=== PATIENT | male | born 1960 | race African-American/Black ===

== ENCOUNTER 2019-10-25 15:11 | Inpatient (IN) | payer MEDICARE, OTHER ==
[~2019-10-25] VITALS: Ht 177.8 cm; Wt 81.2 kg
[~2019-10-25 15:11] MED LIST: ATEN-42 PO; CALC-938 PO; CLON0.3T PO; HYDR-4134; HYDR-4134 PO; HYDR-4135 PO; HYDR-523 PO; LORA10TA7 PO; LOSA100T3 PO; OLME20TA13 PO; OXCA300T31 PO; PROT40 PO; TRIA10.82 NS
[2019-10-25] MEDS ORDERED: MORPHINE SULFATE 4 MG/ML CPJ (NOT FOR IM USE) IV ONE ×2 (17:00→20:00)
[2019-10-25] MEDS ORDERED: SODIUM CHLORIDE 0.9% 1000ML BAG (SEPSIS BOLUS) IV ONE (17:00)
[2019-10-25] MEDS ORDERED: VANCOMYCIN 1 G PREMIX 200 ML IV ONE (17:00)
[2019-10-25] MEDS ORDERED: PIPERACILLIN/TAZ 3.375G PREMIX 50 ML IV ONE (17:00)
[2019-10-25 17:27] LABS: HEMATOCRIT. 26.1 % (42.0-52.0); HEMOGLOBIN. 8.5 g/dL (14.0-18.0); MEAN CORPUSCULAR HEMOGLOBIN 29.9 pg (28.0-32.0); MEAN CORPUSCULAR VOLUME 91.9 fL (80.0-94.0); MEAN PLATELET VOLUME 8.7 fl (7.4-10.4); PLATELET 416 x1000/uL (130-400); RED BLOOD CELL COUNT 2.84 mill/uL (4.7-6.1); RED CELL DISTRIBUTION WIDTH 19.1 % (11.6-14.6)
[2019-10-25 17:34] LABS: CHLORIDE 96 mEq/L (98-107); INR 1.1
[2019-10-25 17:43] LABS: PLATELET ESTIMATE INCREASED
[2019-10-25] MEDS ORDERED: IOHEXOL-300 100 ML BOTTLE ONE (21:30)
[2019-10-25] MEDS ORDERED: FENTANYL CITRATE/PF 50MCG/ML 2ML VIAL IV ONE ×2 (21:45→23:45)
[2019-10-25] MEDS ORDERED: CLINDAMYCIN 600 MG in DEXTROSE 5% WATER 50 ML IV ONE (22:15)
[2019-10-25] MEDS: CLINDAMYCIN 600MG PREMIX 50 ML IV NR ×2 (22:46→23:05)
[2019-10-26] MEDS ORDERED: HYDROMORPHONE HCL/PF 2MG/ML CPJ IV ONE (02:00)
[2019-10-26] MEDS: HYDROCODONE/ACETAMINOPHEN 5/325MG TABLET PO PRN (06:32)
[2019-10-26] MEDS ORDERED: ONDANSETRON HCL 4MG/2ML INJ IV PRN (09:00)
[2019-10-26] MEDS ORDERED: DEXTROSE 50% WATER 50ML SYRINGE IV PRN (09:00)
[2019-10-26 10:15] LABS: BASOPHILS % 0.5 % (0.0-2.0); EOSINOPHILS % 0.6 % (0.0-5.0); HEMATOCRIT. 25.2 % (42.0-52.0); HEMOGLOBIN. 8.2 g/dL (14.0-18.0); MEAN CORPUSCULAR HEMOGLOBIN 29.6 pg (28.0-32.0); MEAN CORPUSCULAR VOLUME 91.6 fL (80.0-94.0); MEAN PLATELET VOLUME 8.5 fl (7.4-10.4); MONOCYTES % 13.7 % (2.0-8.0); NEUTROPHILS % 77.2 % (40.0-76.0); PLATELET 400 x1000/uL (130-400); RED BLOOD CELL COUNT 2.76 mill/uL (4.7-6.1); RED CELL DISTRIBUTION WIDTH 19.3 % (11.6-14.6)
[2019-10-26] MEDS ORDERED: SODIUM POLYSTYRENE SULFONATE 15 G/60 ML BOT PO NR (10:30)
[2019-10-26] MEDS ORDERED: PIPERACILLIN/TAZOBACTAM 2.25 G in DEXTROSE 5% WATER 50 ML IV SCH (11:00)
[2019-10-26] MEDS: BLOOD SUGAR DIAGNOSTIC STRIP TEST SCH ×3 (11:30→21:33)
[2019-10-26] MEDS ORDERED: PIPERACILLIN/TAZOBACTAM 3.375 G in DEXTROSE 5% WATER 50 ML IV SCH (12:00)
[2019-10-26] MEDS: INSULIN LISPRO 100 UNITS/ML SUBCUT SCH ×3 (12:00→21:00)
[2019-10-26 14:45] VITALS: BP 137/75
[2019-10-26] MEDS: HYDROCODONE/ACETAMINOPHEN 10/325MG TABLET PO PRN ×3 (15:02→23:03)
[2019-10-26 15:48] VITALS: BP 137/75
[2019-10-26 16:00] VITALS: BP 148/70
[2019-10-26] MEDS ORDERED: VANCOMYCIN 750 MG PREMIX 150 ML IV NR (17:00)
[2019-10-26 20:09] VITALS: BP 141/95
[2019-10-26] MEDS: EPOETIN ALFA 10000UNITS/ML VIAL SUBCUT SCH (21:32)
[2019-10-26] MEDS: PIPERACILLIN/TAZOBACTAM 2.25 G in DEXTROSE 5% WATER 50 ML IV SCH (21:32)
[2019-10-26] MEDS: LORAZEPAM 1MG TABLET PO PRN (21:32)
[2019-10-26 23:43] VITALS: BP 188/95
[2019-10-26] MEDS: CLONIDINE 0.1MG TABLET PO PRN (23:50)
[2019-10-27] MEDS: HYDRALAZINE 20MG/ML VIAL IV PRN ×2 (00:04→06:30)
[2019-10-27 01:14] VITALS: BP 154/82
[2019-10-27 04:00] VITALS: BP 181/88
[2019-10-27] MEDS: PIPERACILLIN/TAZOBACTAM 2.25 G in DEXTROSE 5% WATER 50 ML IV SCH ×3 (04:35→20:43)
[2019-10-27] MEDS: HYDROCODONE/ACETAMINOPHEN 10/325MG TABLET PO PRN ×3 (04:36→19:19)
[2019-10-27 06:12] LABS: CHLORIDE 98 mEq/L (98-107)
[2019-10-27 06:24] LABS: HEMATOCRIT. 25.2 % (42.0-52.0); HEMOGLOBIN. 8.2 g/dL (14.0-18.0); MEAN CORPUSCULAR HEMOGLOBIN 29.9 pg (28.0-32.0); MEAN CORPUSCULAR VOLUME 91.6 fL (80.0-94.0); PLATELET 430 x1000/uL (130-400); RED BLOOD CELL COUNT 2.75 mill/uL (4.7-6.1); RED CELL DISTRIBUTION WIDTH 19.5 % (11.6-14.6)
[2019-10-27] MEDS: BLOOD SUGAR DIAGNOSTIC STRIP TEST SCH (06:30)
[2019-10-27] MEDS: INSULIN LISPRO 100 UNITS/ML SUBCUT SCH (06:59)
[2019-10-27 08:00] VITALS: BP 144/73
[2019-10-27 12:00] VITALS: BP 167/82
[2019-10-27] MEDS: CLONIDINE 0.1MG TABLET PO PRN (13:10)
[2019-10-27 13:25] LABS: PLATELET ESTIMATE INCREASED
[2019-10-27 16:00] VITALS: BP 129/67
[2019-10-27] MEDS: LORAZEPAM 1MG TABLET PO PRN (20:43)
[2019-10-27 20:48] VITALS: BP 147/61
[2019-10-28 00:43] VITALS: BP 163/69
[2019-10-28] MEDS: CLONIDINE 0.1MG TABLET PO PRN (01:22)
[2019-10-28] MEDS: HYDROCODONE/ACETAMINOPHEN 10/325MG TABLET PO PRN ×4 (01:22→20:34)
[2019-10-28] MEDS: ACETAMINOPHEN 325MG TABLET PO PRN ×2 (01:23→20:34)
[2019-10-28 04:00] VITALS: BP 143/44
[2019-10-28] MEDS: PIPERACILLIN/TAZOBACTAM 2.25 G in DEXTROSE 5% WATER 50 ML IV SCH ×3 (04:00→20:34)
[2019-10-28 07:08] LABS: HEMATOCRIT. 24.1 % (42.0-52.0); HEMOGLOBIN. 7.9 g/dL (14.0-18.0); MEAN CORPUSCULAR HEMOGLOBIN 29.9 pg (28.0-32.0); MEAN CORPUSCULAR VOLUME 91.3 fL (80.0-94.0); MEAN PLATELET VOLUME 8.9 fl (7.4-10.4); PLATELET 431 x1000/uL (130-400); RED BLOOD CELL COUNT 2.64 mill/uL (4.7-6.1); RED CELL DISTRIBUTION WIDTH 19.2 % (11.6-14.6)
[2019-10-28 07:19] LABS: CHLORIDE 99 mEq/L (98-107)
[2019-10-28 08:03] VITALS: BP 149/69
[2019-10-28] MEDS ORDERED: LIDOCAINE HCL 1% 20ML VIAL (Pyxis) INJ ONE ×2 (10:27→13:42)
[2019-10-28] MEDS ORDERED: VANCOMYCIN 500 MG PREMIX 100 ML IV SCH (12:00)
[2019-10-28 12:28] VITALS: BP_SYST 149; BP_SYST 159; BP_DIAS 48; BP_DIAS 69
[2019-10-28] MEDS ORDERED: SODIUM BICARBONATE 4% (2.4MEQ) 5ML VIAL IV ONE (13:42)
[2019-10-28 13:54] LABS: PLATELET ESTIMATE INCREASED
[2019-10-28] MEDS ORDERED: IOHEXOL-350 100 ML BOTTLE ONE (14:48)
[2019-10-28] MEDS: ENOXAPARIN 80MG/0.8ML SYR SUBCUT SCH (16:18)
[2019-10-28] MEDS: CARVEDILOL 6.25 MG TABLET PO SCH ×2 (16:18→20:34)
[2019-10-28 16:33] VITALS: BP 159/65
[2019-10-28 20:29] VITALS: BP 145/52
[2019-10-28] MEDS: EPOETIN ALFA 10000UNITS/ML VIAL SUBCUT SCH (21:39)
[2019-10-29 00:42] VITALS: BP 132/63
[2019-10-29 04:00] VITALS: BP 153/70
[2019-10-29] MEDS: PIPERACILLIN/TAZOBACTAM 2.25 G in DEXTROSE 5% WATER 50 ML IV SCH ×3 (04:26→20:56)
[2019-10-29] MEDS: MORPHINE SULFATE 4 MG/ML CPJ (NOT FOR IM USE) IV PRN ×2 (06:37→12:41)
[2019-10-29 08:23] VITALS: BP 166/76
[2019-10-29 08:39] LABS: BASOPHILS % 0.4 % (0.0-2.0); EOSINOPHILS % 2.3 % (0.0-5.0); HEMATOCRIT. 24.4 % (42.0-52.0); HEMOGLOBIN. 7.8 g/dL (14.0-18.0); LYMPHOCYTES % 7.6 % (20.0-50.0); MEAN CORPUSCULAR HEMOGLOBIN 29.3 pg (28.0-32.0); MEAN CORPUSCULAR VOLUME 91.8 fL (80.0-94.0); MEAN PLATELET VOLUME 8.5 fl (7.4-10.4); MONOCYTES % 12.6 % (2.0-8.0); NEUTROPHILS % 77.1 % (40.0-76.0); PLATELET 475 x1000/uL (130-400); RED BLOOD CELL COUNT 2.66 mill/uL (4.7-6.1); RED CELL DISTRIBUTION WIDTH 19.4 % (11.6-14.6)
[2019-10-29 08:40] LABS: CHLORIDE 97 mEq/L (98-107)
[2019-10-29] MEDS: CARVEDILOL 6.25 MG TABLET PO SCH ×2 (08:49→20:57)
[2019-10-29] MEDS: ENOXAPARIN 80MG/0.8ML SYR SUBCUT SCH (10:40)
[2019-10-29 11:52] VITALS: BP 166/76
[2019-10-29] MEDS: ASPIRIN 81MG EC TABLET PO SCH (12:31)
[2019-10-29 16:02] VITALS: BP 177/78
[2019-10-29] MEDS: ATORVASTATIN CALCIUM 40MG TABLET PO SCH (20:57)
[2019-10-29] MEDS ORDERED: VANCOMYCIN 500 MG PREMIX 100 ML IV SCH (21:00)
[2019-10-29] MEDS: HYDROCODONE/ACETAMINOPHEN 5/325MG TABLET PO PRN (21:06)
[2019-10-30] VITALS: BP 128/78
[2019-10-30] MEDS: ACETAMINOPHEN 325MG TABLET PO PRN (00:10)
[2019-10-30 04:00] VITALS: BP 148/69
[2019-10-30] MEDS: PIPERACILLIN/TAZOBACTAM 2.25 G in DEXTROSE 5% WATER 50 ML IV SCH ×3 (05:00→21:01)
[2019-10-30 07:00] LABS: CHLORIDE 96 mEq/L (98-107)
[2019-10-30 07:07] LABS: MEAN CORPUSCULAR HEMOGLOBIN 29.3 pg (28.0-32.0); MEAN CORPUSCULAR VOLUME 91.6 fL (80.0-94.0); MEAN PLATELET VOLUME 8.8 fl (7.4-10.4); PLATELET 501 x1000/uL (130-400); RED BLOOD CELL COUNT 2.73 mill/uL (4.7-6.1); RED CELL DISTRIBUTION WIDTH 19.5 % (11.6-14.6)
[2019-10-30 08:00] VITALS: BP 144/65
[2019-10-30] MEDS: ZINC SULFATE 220 MG ( 50 ) CAPSULE PO SCH (09:11)
[2019-10-30] MEDS: ASCORBIC ACID 500 MG TABLET PO SCH (09:11)
[2019-10-30] MEDS: ASPIRIN 81MG EC TABLET PO SCH (09:11)
[2019-10-30] MEDS: CARVEDILOL 6.25 MG TABLET PO SCH ×2 (09:12→21:45)
[2019-10-30] MEDS: HYDROCODONE/ACETAMINOPHEN 10/325MG TABLET PO PRN (09:27)
[2019-10-30] MEDS: ENOXAPARIN 80MG/0.8ML SYR SUBCUT SCH (10:56)
[2019-10-30 12:00] VITALS: BP 134/56
[2019-10-30 13:45] LABS: PLATELET ESTIMATE INCREASED
[2019-10-30] MEDS: MORPHINE SULFATE 4 MG/ML CPJ (NOT FOR IM USE) IV PRN ×2 (15:07→21:47)
[2019-10-30 16:00] VITALS: BP 154/64
[2019-10-30 20:00] VITALS: BP 180/68
[2019-10-30] MEDS: ATORVASTATIN CALCIUM 40MG TABLET PO SCH (21:45)
[2019-10-30] MEDS: EPOETIN ALFA 10000UNITS/ML VIAL SUBCUT SCH (21:46)
[2019-10-31] VITALS: BP 128/82
[2019-10-31 04:00] VITALS: BP 126/80
[2019-10-31] MEDS: PIPERACILLIN/TAZOBACTAM 2.25 G in DEXTROSE 5% WATER 50 ML IV SCH ×3 (05:13→21:08)
[2019-10-31] MEDS: MORPHINE SULFATE 4 MG/ML CPJ (NOT FOR IM USE) IV PRN ×4 (05:14→18:02)
[2019-10-31 06:35] LABS: BASOPHILS % 0.3 % (0.0-2.0); EOSINOPHILS % 2.2 % (0.0-5.0); HEMATOCRIT. 23.7 % (42.0-52.0); HEMOGLOBIN. 7.6 g/dL (14.0-18.0); LYMPHOCYTES % 7.6 % (20.0-50.0); MEAN CORPUSCULAR HEMOGLOBIN 29.5 pg (28.0-32.0); MEAN CORPUSCULAR VOLUME 92.1 fL (80.0-94.0); MEAN PLATELET VOLUME 8.6 fl (7.4-10.4); MONOCYTES % 14.2 % (2.0-8.0); NEUTROPHILS % 75.7 % (40.0-76.0); PLATELET 500 x1000/uL (130-400); RED BLOOD CELL COUNT 2.57 mill/uL (4.7-6.1); RED CELL DISTRIBUTION WIDTH 19.8 % (11.6-14.6)
[2019-10-31 06:48] LABS: CHLORIDE 97 mEq/L (98-107)
[2019-10-31 08:00] VITALS: BP 160/70
[2019-10-31] MEDS: ASCORBIC ACID 500 MG TABLET PO SCH (09:02)
[2019-10-31] MEDS: ASPIRIN 81MG EC TABLET PO SCH (09:02)
[2019-10-31] MEDS: ZINC SULFATE 220 MG ( 50 ) CAPSULE PO SCH (09:02)
[2019-10-31] MEDS: CARVEDILOL 6.25 MG TABLET PO SCH ×2 (09:03→21:07)
[2019-10-31 12:00] VITALS: BP 136/63
[2019-10-31 16:00] VITALS: BP 142/63
[2019-10-31 20:24] VITALS: BP 129/66
[2019-10-31] MEDS: ATORVASTATIN CALCIUM 40MG TABLET PO SCH (21:08)
[2019-10-31] MEDS: ACETAMINOPHEN 325MG TABLET PO PRN (21:08)
[2019-11-01 00:40] VITALS: BP 159/69
[2019-11-01 04:00] VITALS: BP 144/60
[2019-11-01] MEDS: PIPERACILLIN/TAZOBACTAM 2.25 G in DEXTROSE 5% WATER 50 ML IV SCH ×3 (04:45→20:02)
[2019-11-01] MEDS: MORPHINE SULFATE 4 MG/ML CPJ (NOT FOR IM USE) IV PRN ×2 (06:13→19:59)
[2019-11-01 08:08] VITALS: BP 148/73
[2019-11-01] MEDS: ASPIRIN 81MG EC TABLET PO SCH (08:43)
[2019-11-01] MEDS: ZINC SULFATE 220 MG ( 50 ) CAPSULE PO SCH (08:43)
[2019-11-01] MEDS: ASCORBIC ACID 500 MG TABLET PO SCH (08:43)
[2019-11-01] MEDS: CARVEDILOL 6.25 MG TABLET PO SCH ×2 (08:44→19:58)
[2019-11-01] MEDS: HYDRALAZINE HCL 50MG TABLET PO SCH ×2 (12:00→19:58)
[2019-11-01 12:09] VITALS: BP 130/66
[2019-11-01 13:33] LABS: BASOPHILS % 0.1 % (0.0-2.0); EOSINOPHILS % 3.4 % (0.0-5.0); HEMATOCRIT. 23.9 % (42.0-52.0); HEMOGLOBIN. 7.8 g/dL (14.0-18.0); LYMPHOCYTES % 8.6 % (20.0-50.0); MEAN CORPUSCULAR HEMOGLOBIN 30.1 pg (28.0-32.0); MEAN CORPUSCULAR VOLUME 92.5 fL (80.0-94.0); MEAN PLATELET VOLUME 8.3 fl (7.4-10.4); MONOCYTES % 14.3 % (2.0-8.0); NEUTROPHILS % 73.6 % (40.0-76.0); PLATELET 515 x1000/uL (130-400); RED BLOOD CELL COUNT 2.58 mill/uL (4.7-6.1)
[2019-11-01 16:05] VITALS: BP 151/76
[2019-11-01] MEDS: ATORVASTATIN CALCIUM 40MG TABLET PO SCH (19:57)
[2019-11-01 20:04] VITALS: BP 162/72
[2019-11-01] MEDS ORDERED: EPOETIN ALFA 10000UNITS/ML VIAL SUBCUT SCH (21:00)
[2019-11-02] VITALS (8 sets, daily range): BP systolic 127–165; BP diastolic 55–88
[2019-11-02] MEDS: CLONIDINE 0.1MG TABLET PO PRN (00:40)
[2019-11-02] MEDS: PIPERACILLIN/TAZOBACTAM 2.25 G in DEXTROSE 5% WATER 50 ML IV SCH ×3 (05:00→20:49)
[2019-11-02] MEDS: MORPHINE SULFATE 4 MG/ML CPJ (NOT FOR IM USE) IV PRN ×3 (05:00→21:28)
[2019-11-02 06:16] LABS: HEMATOCRIT. 22.9 % (42.0-52.0); HEMOGLOBIN. 7.3 g/dL (14.0-18.0); MEAN CORPUSCULAR HEMOGLOBIN 29.4 pg (28.0-32.0); MEAN CORPUSCULAR VOLUME 92.9 fL (80.0-94.0); MEAN PLATELET VOLUME 8.6 fl (7.4-10.4); PLATELET 501 x1000/uL (130-400); RED BLOOD CELL COUNT 2.46 mill/uL (4.7-6.1); RED CELL DISTRIBUTION WIDTH 19.8 % (11.6-14.6)
[2019-11-02] MEDS: HYDRALAZINE HCL 50MG TABLET PO SCH ×2 (09:30→20:50)
[2019-11-02] MEDS: ASPIRIN 81MG EC TABLET PO SCH (09:31)
[2019-11-02] MEDS: ASCORBIC ACID 500 MG TABLET PO SCH (09:31)
[2019-11-02] MEDS: ZINC SULFATE 220 MG ( 50 ) CAPSULE PO SCH (09:31)
[2019-11-02] MEDS: CARVEDILOL 6.25 MG TABLET PO SCH ×2 (09:31→20:50)
[2019-11-02 12:33] LABS: PLATELET ESTIMATE INCREASED
[2019-11-02] MEDS: FERROUS SULFATE 325MG TABLET PO SCH (15:33)
[2019-11-02] MEDS: ACETAMINOPHEN 325MG TABLET PO PRN (17:49)
[2019-11-02] MEDS: ATORVASTATIN CALCIUM 40MG TABLET PO SCH (20:50)
[2019-11-03] VITALS (10 sets, daily range): BP systolic 96–178; BP diastolic 58–77
[2019-11-03] MEDS: MORPHINE SULFATE 4 MG/ML CPJ (NOT FOR IM USE) IV PRN (01:38)
[2019-11-03] MEDS: FERROUS SULFATE 325MG TABLET PO SCH ×3 (07:50→18:44)
[2019-11-03] MEDS: ZINC SULFATE 220 MG ( 50 ) CAPSULE PO SCH (09:00)
[2019-11-03] MEDS: ASPIRIN 81MG EC TABLET PO SCH (09:25)
[2019-11-03] MEDS: HYDRALAZINE HCL 50MG TABLET PO SCH ×2 (09:25→21:37)
[2019-11-03] MEDS: ASCORBIC ACID 500 MG TABLET PO SCH (09:25)
[2019-11-03] MEDS: CARVEDILOL 6.25 MG TABLET PO SCH (09:28)
[2019-11-03] MEDS ORDERED: FENTANYL CITRATE/PF 50MCG/ML 2ML VIAL ONE ×2 (10:59→12:01)
[2019-11-03] MEDS ORDERED: LIDOCAINE HCL 1% 20ML VIAL (Pyxis) INJ ONE ×2 (10:59→11:51)
[2019-11-03] MEDS ORDERED: MIDAZOLAM HCL 2 MG/2 ML VIAL ONE (10:59)
[2019-11-03] MEDS ORDERED: IODIXANOL 320MG/ML 100 ML BOTTLE IV ONE (10:59)
[2019-11-03] MEDS ORDERED: DIPHENHYDRAMINE 50MG/ML VIAL ONE (11:50)
[2019-11-03] MEDS ORDERED: IOHEXOL-300 100 ML BOTTLE ONE (12:01)
[2019-11-03] MEDS ORDERED: HEPARIN SODIUM 1,000 UNIT/1ML VIAL IV ONE (12:16)
[2019-11-03 14:42] LABS: HEMATOCRIT. 27.3 % (42.0-52.0); MEAN CORPUSCULAR HEMOGLOBIN 30.4 pg (28.0-32.0); MEAN CORPUSCULAR VOLUME 92.3 fL (80.0-94.0); MEAN PLATELET VOLUME 7.9 fl (7.4-10.4); PLATELET 466 x1000/uL (130-400); RED BLOOD CELL COUNT 2.96 mill/uL (4.7-6.1)
[2019-11-03 14:58] LABS: PLATELET ESTIMATE SLIGHTLY INCREASED
[2019-11-03] MEDS ORDERED: MEROPENEM 1,000 MG in SODIUM CHLORIDE 0.9% 100 ML IV SCH ×2 (15:30→20:00)
[2019-11-03] MEDS: HYDROMORPHONE HCL/PF 2MG/ML CPJ IV PRN ×2 (16:23→23:54)
[2019-11-03] MEDS: ATORVASTATIN CALCIUM 40MG TABLET PO SCH (21:37)
[2019-11-03] MEDS: EPOETIN ALFA 4000UNITS/ML VIAL SUBCUT SCH (21:38)
[2019-11-03] MEDS: EPOETIN ALFA 10000UNITS/ML VIAL SUBCUT SCH (21:38)
[2019-11-03] MEDS: CARVEDILOL 12.5MG TABLET PO SCH (21:38)
[2019-11-04] VITALS: BP 125/70
[2019-11-04 04:00] VITALS: BP 155/68
[2019-11-04] MEDS: HYDROMORPHONE HCL/PF 2MG/ML CPJ IV PRN ×2 (06:04→15:41)
[2019-11-04 06:31] LABS: BASOPHILS % 0.5 % (0.0-2.0); EOSINOPHILS % 3.2 % (0.0-5.0); HEMATOCRIT. 29.2 % (42.0-52.0); HEMOGLOBIN. 9.3 g/dL (14.0-18.0); LYMPHOCYTES % 9.9 % (20.0-50.0); MEAN CORPUSCULAR HEMOGLOBIN 29.7 pg (28.0-32.0); MEAN CORPUSCULAR VOLUME 93.5 fL (80.0-94.0); MEAN PLATELET VOLUME 8.6 fl (7.4-10.4); MONOCYTES % 14.6 % (2.0-8.0); NEUTROPHILS % 71.8 % (40.0-76.0); PLATELET 491 x1000/uL (130-400); RED BLOOD CELL COUNT 3.12 mill/uL (4.7-6.1); RED CELL DISTRIBUTION WIDTH 18.6 % (11.6-14.6)
[2019-11-04] MEDS ORDERED: VANCOMYCIN 500 MG PREMIX 100 ML IV NR (07:00)
[2019-11-04 07:50] VITALS: BP 105/63
[2019-11-04] MEDS: ZINC SULFATE 220 MG ( 50 ) CAPSULE PO SCH (09:55)
[2019-11-04] MEDS: CLOPIDOGREL 75MG TABLET PO SCH (09:55)
[2019-11-04] MEDS: FERROUS SULFATE 325MG TABLET PO SCH ×3 (09:55→17:17)
[2019-11-04] MEDS: HYDRALAZINE HCL 50MG TABLET PO SCH ×2 (09:55→22:00)
[2019-11-04] MEDS: ASPIRIN 81MG EC TABLET PO SCH (09:55)
[2019-11-04] MEDS: ASCORBIC ACID 500 MG TABLET PO SCH (09:56)
[2019-11-04] MEDS: CARVEDILOL 12.5MG TABLET PO SCH ×2 (09:56→22:54)
[2019-11-04] MEDS ORDERED: NITROGLYCERIN 0.2MG/HR PATCH TOP ONE (12:00)
[2019-11-04] MEDS ORDERED: BUPIVACAINE HCL/PF 0.25% (2.5MG/ML) 10ML ONE ×2 (12:05→16:20)
[2019-11-04] MEDS ORDERED: LIDOCAINE HCL 1% 20ML VIAL (Pyxis) INJ ONE ×2 (12:06→16:20)
[2019-11-04] MEDS ORDERED: VANCOMYCIN HCL 1 GM/VIAL ONE (12:06)
[2019-11-04 12:10] VITALS: BP 112/58
[2019-11-04 16:00] VITALS: BP 157/67
[2019-11-04] MEDS ORDERED: BACITRACIN 50,000 UNITS/VIAL ONE (16:44)
[2019-11-04] MEDS ORDERED: MIDAZOLAM HCL 2 MG/2 ML VIAL ONE ×2 (17:12→17:39)
[2019-11-04] MEDS ORDERED: HYDROMORPHONE HCL/PF 2MG/ML (OR) ONE ×2 (17:12→17:24)
[2019-11-04] MEDS ORDERED: CEFAZOLIN SODIUM 1000MG/VIAL ONE (17:22)
[2019-11-04] MEDS ORDERED: LABETALOL 5MG/ML SYR 20 MG/4 ML SYRINGE IV PRN (17:45)
[2019-11-04] MEDS ORDERED: MEPERIDINE HCL/PF 25MG/ML CPJ IV PRN (17:45)
[2019-11-04] MEDS ORDERED: HYDROMORPHONE HCL/PF 2MG/ML CPJ IV PRN (17:45)
[2019-11-04] MEDS ORDERED: ONDANSETRON HCL 4MG/2ML INJ IV PRN (17:45)
[2019-11-04] MEDS ORDERED: MEROPENEM 1,000 MG in SODIUM CHLORIDE 0.9% 100 ML IV SCH (18:00)
[2019-11-04 20:00] VITALS: BP 127/71
[2019-11-04] MEDS: MEROPENEM 1,000 MG in SODIUM CHLORIDE 0.9% 100 ML IV SCH (22:50)
[2019-11-04] MEDS: ATORVASTATIN CALCIUM 40MG TABLET PO SCH (22:54)
[2019-11-05] VITALS: BP 146/74
[2019-11-05] MEDS: HYDROMORPHONE HCL/PF 2MG/ML CPJ IV PRN ×2 (03:24→08:08)
[2019-11-05 04:00] VITALS: BP 139/63
[2019-11-05] MEDS: HYDRALAZINE HCL 50MG TABLET PO SCH ×3 (06:29→22:00)
[2019-11-05 07:22] LABS: BASOPHILS % 0.2 % (0.0-2.0); EOSINOPHILS % 2.2 % (0.0-5.0); HEMATOCRIT. 25.1 % (42.0-52.0); HEMOGLOBIN. 7.9 g/dL (14.0-18.0); LYMPHOCYTES % 10.1 % (20.0-50.0); MEAN CORPUSCULAR HEMOGLOBIN 29.8 pg (28.0-32.0); MEAN PLATELET VOLUME 8.4 fl (7.4-10.4); MONOCYTES % 14.2 % (2.0-8.0); NEUTROPHILS % 73.3 % (40.0-76.0); PLATELET 441 x1000/uL (130-400); RED BLOOD CELL COUNT 2.67 mill/uL (4.7-6.1); RED CELL DISTRIBUTION WIDTH 18.9 % (11.6-14.6)
[2019-11-05 08:00] VITALS: BP 139/67
[2019-11-05] MEDS: CLOPIDOGREL 75MG TABLET PO SCH (08:06)
[2019-11-05] MEDS: ASPIRIN 81MG EC TABLET PO SCH (08:07)
[2019-11-05] MEDS: ASCORBIC ACID 500 MG TABLET PO SCH (08:07)
[2019-11-05] MEDS: CARVEDILOL 12.5MG TABLET PO SCH ×2 (08:07→21:00)
[2019-11-05] MEDS: FERROUS SULFATE 325MG TABLET PO SCH ×3 (08:07→17:50)
[2019-11-05] MEDS: ZINC SULFATE 220 MG ( 50 ) CAPSULE PO SCH (08:11)
[2019-11-05 12:00] VITALS: BP 115/52
[2019-11-05] MEDS: ACETAMINOPHEN 325MG TABLET PO PRN (13:12)
[2019-11-05] MEDS ORDERED: HYDROCODONE/ACETAMINOPHEN 5/325MG TABLET PO PRN (14:45)
[2019-11-05 16:00] VITALS: BP 127/52
[2019-11-05] MEDS: HYDROCODONE/ACETAMINOPHEN 5/325MG TABLET PO PRN (16:53)
[2019-11-05] MEDS: ATORVASTATIN CALCIUM 40MG TABLET PO SCH (20:29)
[2019-11-05] MEDS: MEROPENEM 1,000 MG in SODIUM CHLORIDE 0.9% 100 ML IV SCH (20:30)
[2019-11-06] MEDS ORDERED: LIDOCAINE HCL/PF 1% 2ML VIAL INFIL SCH ×2
[2019-11-06 00:26] VITALS: BP 181/79
[2019-11-06] MEDS: HYDROMORPHONE HCL/PF 2MG/ML CPJ IV PRN ×3 (00:36→21:07)
[2019-11-06 04:30] VITALS: BP 158/76
[2019-11-06] MEDS: EPOETIN ALFA 10000UNITS/ML VIAL SUBCUT SCH (04:30)
[2019-11-06] MEDS: EPOETIN ALFA 4000UNITS/ML VIAL SUBCUT SCH (04:30)
[2019-11-06] MEDS: HYDRALAZINE HCL 50MG TABLET PO SCH ×3 (06:18→21:06)
[2019-11-06] MEDS: ACETAMINOPHEN 325MG TABLET PO PRN (06:18)
[2019-11-06 06:38] LABS: BASOPHILS % 0.3 % (0.0-2.0); EOSINOPHILS % 2.7 % (0.0-5.0); HEMOGLOBIN. 7.8 g/dL (14.0-18.0); LYMPHOCYTES % 10.4 % (20.0-50.0); MEAN CORPUSCULAR HEMOGLOBIN 30.9 pg (28.0-32.0); MEAN CORPUSCULAR VOLUME 94.5 fL (80.0-94.0); MEAN PLATELET VOLUME 8.4 fl (7.4-10.4); MONOCYTES % 13.7 % (2.0-8.0); NEUTROPHILS % 72.9 % (40.0-76.0); PLATELET 432 x1000/uL (130-400); RED BLOOD CELL COUNT 2.54 mill/uL (4.7-6.1); RED CELL DISTRIBUTION WIDTH 19.4 % (11.6-14.6)
[2019-11-06 08:00] VITALS: BP 141/69
[2019-11-06] MEDS: ASCORBIC ACID 500 MG TABLET PO SCH (09:35)
[2019-11-06] MEDS: ASPIRIN 81MG EC TABLET PO SCH (09:35)
[2019-11-06] MEDS: CARVEDILOL 12.5MG TABLET PO SCH ×2 (09:35→21:07)
[2019-11-06] MEDS: ZINC SULFATE 220 MG ( 50 ) CAPSULE PO SCH (09:35)
[2019-11-06] MEDS: CLOPIDOGREL 75MG TABLET PO SCH (09:35)
[2019-11-06] MEDS: FERROUS SULFATE 325MG TABLET PO SCH ×3 (09:37→17:49)
[2019-11-06 12:00] VITALS: BP 140/69
[2019-11-06 16:00] VITALS: BP 156/69
[2019-11-06 20:15] VITALS: BP 142/60
[2019-11-06] MEDS: MEROPENEM 1,000 MG in SODIUM CHLORIDE 0.9% 100 ML IV SCH (21:06)
[2019-11-06] MEDS: ATORVASTATIN CALCIUM 40MG TABLET PO SCH (21:06)
[2019-11-07 00:50] VITALS: BP 139/70
[2019-11-07] MEDS: HYDROCODONE/ACETAMINOPHEN 5/325MG TABLET PO PRN ×3 (01:46→19:47)
[2019-11-07 04:43] VITALS: BP 149/65
[2019-11-07] MEDS: HYDROMORPHONE HCL/PF 2MG/ML CPJ IV PRN ×2 (06:13→17:30)
[2019-11-07] MEDS: HYDRALAZINE HCL 50MG TABLET PO SCH ×3 (06:13→22:14)
[2019-11-07 06:59] LABS: BASOPHILS % 0.6 % (0.0-2.0); EOSINOPHILS % 1.9 % (0.0-5.0); HEMATOCRIT. 22.2 % (42.0-52.0); HEMOGLOBIN. 7.2 g/dL (14.0-18.0); LYMPHOCYTES % 11.9 % (20.0-50.0); MEAN CORPUSCULAR HEMOGLOBIN 30.8 pg (28.0-32.0); MEAN CORPUSCULAR VOLUME 95.6 fL (80.0-94.0); MEAN PLATELET VOLUME 8.3 fl (7.4-10.4); MONOCYTES % 14.1 % (2.0-8.0); NEUTROPHILS % 71.5 % (40.0-76.0); PLATELET 425 x1000/uL (130-400); RED BLOOD CELL COUNT 2.32 mill/uL (4.7-6.1); RED CELL DISTRIBUTION WIDTH 20.2 % (11.6-14.6)
[2019-11-07 08:00] VITALS: BP 124/64
[2019-11-07] MEDS: CARVEDILOL 12.5MG TABLET PO SCH ×2 (09:24→22:14)
[2019-11-07] MEDS: CLOPIDOGREL 75MG TABLET PO SCH (09:24)
[2019-11-07] MEDS: ASPIRIN 81MG EC TABLET PO SCH (09:24)
[2019-11-07] MEDS: ZINC SULFATE 220 MG ( 50 ) CAPSULE PO SCH (09:24)
[2019-11-07] MEDS: ASCORBIC ACID 500 MG TABLET PO SCH (09:24)
[2019-11-07 12:35] VITALS: BP 118/60
[2019-11-07] MEDS: FERROUS SULFATE 325MG TABLET PO SCH ×2 (13:09→17:13)
[2019-11-07 16:08] VITALS: BP 123/70
[2019-11-07 20:00] VITALS: BP 120/77
[2019-11-07] MEDS: ATORVASTATIN CALCIUM 40MG TABLET PO SCH (22:14)
[2019-11-07] MEDS: MEROPENEM 1,000 MG in SODIUM CHLORIDE 0.9% 100 ML IV SCH (22:14)
[2019-11-08] MEDS: HYDROMORPHONE HCL/PF 2MG/ML CPJ IV PRN ×2 (00:15→06:19)
[2019-11-08 00:54] VITALS: BP 140/45
[2019-11-08] MEDS: HYDROCODONE/ACETAMINOPHEN 5/325MG TABLET PO PRN ×5 (03:16→22:54)
[2019-11-08 04:00] VITALS: BP 155/69
[2019-11-08] MEDS: HYDRALAZINE HCL 50MG TABLET PO SCH ×3 (06:21→22:00)
[2019-11-08 06:51] LABS: HEMATOCRIT. 22.5 % (42.0-52.0); HEMOGLOBIN. 7.3 g/dL (14.0-18.0); MEAN CORPUSCULAR HEMOGLOBIN 31.2 pg (28.0-32.0); MEAN CORPUSCULAR VOLUME 96.5 fL (80.0-94.0); MEAN PLATELET VOLUME 8.5 fl (7.4-10.4); PLATELET 427 x1000/uL (130-400); RED BLOOD CELL COUNT 2.33 mill/uL (4.7-6.1); RED CELL DISTRIBUTION WIDTH 21.1 % (11.6-14.6)
[2019-11-08 08:00] VITALS: BP 118/64
[2019-11-08] MEDS: ASCORBIC ACID 500 MG TABLET PO SCH (08:21)
[2019-11-08] MEDS: ZINC SULFATE 220 MG ( 50 ) CAPSULE PO SCH (08:21)
[2019-11-08] MEDS: FERROUS SULFATE 325MG TABLET PO SCH ×3 (08:21→17:43)
[2019-11-08] MEDS: CARVEDILOL 12.5MG TABLET PO SCH ×2 (09:00→21:18)
[2019-11-08 12:00] VITALS: BP 130/46
[2019-11-08] MEDS ORDERED: LIP40 PO (14:15)
[2019-11-08] MEDS ORDERED: TOPUD PO (14:15)
[2019-11-08] MEDS ORDERED: ZINC220C2 PO (14:15)
[2019-11-08] MEDS ORDERED: HYDR-4135 PO (14:15)
[2019-11-08] MEDS ORDERED: COR12 PO (14:15)
[2019-11-08] MEDS ORDERED: FERR325T23 PO (14:15)
[2019-11-08] MEDS ORDERED: ASCO500T20 PO (14:15)
[2019-11-08 16:00] VITALS: BP 138/63
[2019-11-08 20:00] VITALS: BP 146/61
[2019-11-08] MEDS: EPOETIN ALFA 10000UNITS/ML VIAL SUBCUT SCH (21:00)
[2019-11-08 21:08] LABS: PLATELET ESTIMATE NORMAL
[2019-11-08] MEDS: MEROPENEM 1,000 MG in SODIUM CHLORIDE 0.9% 100 ML IV SCH (21:18)
[2019-11-08] MEDS: ATORVASTATIN CALCIUM 40MG TABLET PO SCH (21:18)
[2019-11-09 00:17] VITALS: BP 129/51
[2019-11-09] MEDS: EPOETIN ALFA 10000UNITS/ML VIAL SUBCUT SCH (02:56)
[2019-11-09 04:00] VITALS: BP 156/65
[2019-11-09] MEDS: HYDROCODONE/ACETAMINOPHEN 5/325MG TABLET PO PRN ×3 (05:25→18:37)
[2019-11-09] MEDS: HYDRALAZINE HCL 50MG TABLET PO SCH (06:04)
[2019-11-09 08:00] VITALS: BP 144/74
[2019-11-09] MEDS: ASCORBIC ACID 500 MG TABLET PO SCH (08:30)
[2019-11-09] MEDS: FERROUS SULFATE 325MG TABLET PO SCH ×3 (08:30→17:57)
[2019-11-09] MEDS: CARVEDILOL 12.5MG TABLET PO SCH ×2 (08:31→21:11)
[2019-11-09] MEDS: ZINC SULFATE 220 MG ( 50 ) CAPSULE PO SCH (08:31)
[2019-11-09 12:00] VITALS: BP 138/72
[2019-11-09] MEDS ORDERED: CEFEPIME 2,000 MG in DEXT 5% WATER 100 ML IV SCH (12:45)
[2019-11-09] MEDS: CEFEPIME 1,000 MG in DEXTROSE 5% WATER 50 ML IV SCH (15:03)
[2019-11-09] MEDS: HYDRALAZINE HCL 100MG TABLET PO SCH ×2 (15:04→21:12)
[2019-11-09 16:00] VITALS: BP 134/68
[2019-11-09 20:00] VITALS: BP 141/57
[2019-11-09] MEDS: ATORVASTATIN CALCIUM 40MG TABLET PO SCH (21:12)
[2019-11-10] VITALS: BP 119/53
[2019-11-10] MEDS: HYDROCODONE/ACETAMINOPHEN 5/325MG TABLET PO PRN ×4 (00:14→14:39)
[2019-11-10 04:00] VITALS: BP 130/70
[2019-11-10] MEDS: HYDRALAZINE HCL 100MG TABLET PO SCH ×2 (06:23→13:27)
[2019-11-10 08:00] VITALS: BP 139/46
[2019-11-10] MEDS: CARVEDILOL 12.5MG TABLET PO SCH (09:00)
[2019-11-10] MEDS ORDERED: DIPHENHYDRAMINE 50MG/ML VIAL IV PRN (09:45)
[2019-11-10] MEDS: ASCORBIC ACID 500 MG TABLET PO SCH (09:55)
[2019-11-10] MEDS: ZINC SULFATE 220 MG ( 50 ) CAPSULE PO SCH (09:55)
[2019-11-10] MEDS: FERROUS SULFATE 325MG TABLET PO SCH ×3 (09:55→17:50)
[2019-11-10 12:00] VITALS: BP 145/70
[2019-11-10] MEDS: CEFEPIME 1,000 MG in DEXTROSE 5% WATER 50 ML IV SCH (13:27)
[2019-11-10 13:30] LABS: HEMATOCRIT. 24.6 % (42.0-52.0); HEMOGLOBIN. 7.8 g/dL (14.0-18.0); MEAN CORPUSCULAR HEMOGLOBIN 30.6 pg (28.0-32.0); MEAN CORPUSCULAR VOLUME 96.9 fL (80.0-94.0); MEAN PLATELET VOLUME 8.1 fl (7.4-10.4); PLATELET 448 x1000/uL (130-400); RED BLOOD CELL COUNT 2.54 mill/uL (4.7-6.1); RED CELL DISTRIBUTION WIDTH 22.5 % (11.6-14.6)
[2019-11-10 15:53] VITALS: BP 145/70
[2019-11-10 16:00] VITALS: BP 138/64
[2019-11-11 13:27] LABS: PLATELET ESTIMATE INCREASED
== END 2019-11-10 19:20 | DRG 463 ==
LOC: ER 17:04 → EDBEDREQTM 21:48 → EDBEDREQSVC 21:48 → EDBEDREQ 21:48 → EDBEDREQSVC 22:26 → EDBEDREQTM 22:26 → EDBEDREQ 22:26 → MICUSO 22:28 → EDBEDREQDT 10-26 03:09 → EDBEDREQSVC 10-26 03:09 → EDBEDREQTM 10-26 03:09 → 6WST 10-26 12:58 → CANBEDREQ 10-26 16:39
PROVIDERS: ADMIT Internal Medicine; ATTEND Internal Medicine
PROC: 5A1D70Z Performance of Urinary Filtration, Intermittent, Less than 6 Hours Per Day (ICD-10-PCS; 2019-10-26)
PROC: 5A1D70Z Performance of Urinary Filtration, Intermittent, Less than 6 Hours Per Day (ICD-10-PCS; 2019-10-27)
PROC: B5181ZA Fluoroscopy of Superior Vena Cava using Low Osmolar Contrast, Guidance (ICD-10-PCS; principal; 2019-10-28)
PROC: 02HV33Z Insertion of Infusion Device into Superior Vena Cava, Percutaneous Approach (ICD-10-PCS; 2019-10-28)
PROC: B548ZZA Ultrasonography of Superior Vena Cava, Guidance (ICD-10-PCS; 2019-10-28)
PROC: 5A1D70Z Performance of Urinary Filtration, Intermittent, Less than 6 Hours Per Day (ICD-10-PCS; 2019-10-28)
PROC: 5A1D70Z Performance of Urinary Filtration, Intermittent, Less than 6 Hours Per Day (ICD-10-PCS; 2019-11-01)
PROC: 30233N1 Transfusion of Nonautologous Red Blood Cells into Peripheral Vein, Percutaneous Approach (ICD-10-PCS; 2019-11-02)
PROC: 047L3ZZ Dilation of Left Femoral Artery, Percutaneous Approach (ICD-10-PCS; 2019-11-03)
PROC: B41G1ZZ Fluoroscopy of Left Lower Extremity Arteries using Low Osmolar Contrast (ICD-10-PCS; 2019-11-03)
PROC: 04HK33Z Insertion of Infusion Device into Right Femoral Artery, Percutaneous Approach (ICD-10-PCS; 2019-11-03)
PROC: 04HD33Z Insertion of Infusion Device into Left Common Iliac Artery, Percutaneous Approach (ICD-10-PCS; 2019-11-03)
PROC: 5A1D70Z Performance of Urinary Filtration, Intermittent, Less than 6 Hours Per Day (ICD-10-PCS; 2019-11-03)
PROC: 0JBR0ZZ Excision of Left Foot Subcutaneous Tissue and Fascia, Open Approach (ICD-10-PCS; 2019-11-04)
PROC: 5A1D70Z Performance of Urinary Filtration, Intermittent, Less than 6 Hours Per Day (ICD-10-PCS; 2019-11-04)
PROC: 5A1D70Z Performance of Urinary Filtration, Intermittent, Less than 6 Hours Per Day (ICD-10-PCS; 2019-11-07)
PROC: 5A1D70Z Performance of Urinary Filtration, Intermittent, Less than 6 Hours Per Day (ICD-10-PCS; 2019-11-09)
DX: T87.44 Infection of amputation stump, left lower extremity (principal); A41.9 Sepsis, unspecified organism; N18.6 End stage renal disease; E87.2 Acidosis; E87.1 Hypo-osmolality and hyponatremia; L03.116 Cellulitis of left lower limb; D62 Acute posthemorrhagic anemia; I13.2 Hypertensive heart and chronic kidney disease with heart failure and with stage 5 chronic kidney disease, or end stage renal disease; I50.20 Unspecified systolic (congestive) heart failure; E11.52 Type 2 diabetes mellitus with diabetic peripheral angiopathy with gangrene; I31.3 Pericardial effusion (noninflammatory); M86.8X7 Other osteomyelitis, ankle and foot; E11.22 Type 2 diabetes mellitus with diabetic chronic kidney disease; E11.65 Type 2 diabetes mellitus with hyperglycemia; E11.69 Type 2 diabetes mellitus with other specified complication; E87.5 Hyperkalemia; K21.9 Gastro-esophageal reflux disease without esophagitis; I25.5 Ischemic cardiomyopathy; E83.51 Hypocalcemia; I99.8 Other disorder of circulatory system; I70.202 Unspecified atherosclerosis of native arteries of extremities, left leg; L29.9 Pruritus, unspecified; L89.302 Pressure ulcer of unspecified buttock, stage 2; Z20.828 Contact with and (suspected) exposure to other viral communicable diseases; R26.9 Unspecified abnormalities of gait and mobility; R74.0 Nonspecific elevation of levels of transaminase and lactic acid dehydrogenase [LDH]; Y83.5 Amputation of limb(s) as the cause of abnormal reaction of the patient, or of later complication, without mention of misadventure at the time of the procedure; Z53.20 Procedure and treatment not carried out because of patient's decision for unspecified reasons; Z91.19 Patient's noncompliance with other medical treatment and regimen; Z79.899 Other long term (current) drug therapy; Z99.2 Dependence on renal dialysis; Z82.49 Family history of ischemic heart disease and other diseases of the circulatory system; Z83.3 Family history of diabetes mellitus; Z89.519 Acquired absence of unspecified leg below knee; Z91.14 Patient's other noncompliance with medication regimen; Y92.89 Other specified places as the place of occurrence of the external cause
CPT/HCPCS: 36415; 36573; 37224; 71045; 73620; 73701; 73718; 75635; 75710; 76937; 80048; 80053; 80202; 82962; 83036; 83605; 83735; 83880; 84134; 84145; 85025; 85347; 86850; 86900; 86920; 87070; 87075; 87077; 87186; 87635; 88302; 88311; 93005; 93306; 93923; 93970; 96365; 97162; 97164; 97165; 97168; 97530; 97535; 99285; C1725; C1760; C1769; C1887; C1893; C1894; J0360; J0690; J0692; J0885; J1170; J1200; J1644; J1650; J2185; J2250; J2270; J2405; J2543; J3010; J3370; J3490; J7030; J7050; J7060; P9016; Q9967; U0003-CS

== ENCOUNTER 2019-12-01 18:12 | Emergency (ER) | payer MEDICARE, OTHER ==
[~2019-12-01] VITALS: Ht 180.3 cm; Wt 83.0 kg
[~2019-12-01 18:12] MED LIST changes: +ASCO500T20 PO; -ATEN-42 PO; +COR12 PO; +FERR325T23 PO; -HYDR-4134; -HYDR-4134 PO; +LIP40 PO; -LOSA100T3 PO; +TOPUD PO; +ZINC220C2 PO
[2019-12-01 19:07] LABS: HEMATOCRIT. 26.9 % (42.0-52.0); HEMOGLOBIN. 8.8 g/dL (14.0-18.0); MEAN CORPUSCULAR HEMOGLOBIN 32.1 pg (28.0-32.0); MEAN PLATELET VOLUME 8.9 fl (7.4-10.4); PLATELET 268 x1000/uL (130-400); RED BLOOD CELL COUNT 2.74 mill/uL (4.7-6.1); RED CELL DISTRIBUTION WIDTH 20.1 % (11.6-14.6)
[2019-12-01] MEDS ORDERED: ASPIRIN 300MG SUPP PR ONE (19:15)
[2019-12-01 19:22] LABS: CHLORIDE 102 mEq/L (98-107); INR 1.2; PROTHROMBIN TIME 12.9 sec (9.6-11.0)
[2019-12-01 19:26] LABS: ETHANOL BLOOD < 10 mg/dL
[2019-12-01 19:29] LABS: LDL CHOLESTEROL 86 mg/dL (5-100)
[2019-12-01] MEDS ORDERED: SODIUM CHLORIDE 0.9% 500 ML IV ONE (20:00)
[2019-12-01 20:19] LABS: PLATELET ESTIMATE NORMAL
[2019-12-01 20:44] LABS: CLARITY URINE TURBID (CLEAR); COLOR URINE DARK YELLOW (YELLOW); KETONES URINE NEGATIVE (NEGATIVE); LEUKOCYTE ESTERASE URINE 2+ (NEGATIVE); NITRITE URINE NEGATIVE (NEGATIVE); OCCULT BLOOD URINE 2+ (NEGATIVE); PROTEIN URINE 4+ (NEGATIVE); SPECIFIC GRAVITY URINE 1.038 (1.005-1.030); UROBILINOGEN URINE 0.2 E.U./dL (0.2-1.0)
[2019-12-01 21:03] LABS: *AMPHETAMINES SCREEN URINE NEGATIVE (NEGATIVE); *BARBITURATES SCREEN URINE NEGATIVE (NEGATIVE); *BENZODIAZEPINES SCREEN URINE NEGATIVE (NEGATIVE); *COCAINE SCREEN URINE NEGATIVE (NEGATIVE); METHADONE URINE SCREEN NEGATIVE (NEGATIVE); PHENCYCLIDINE URINE SCREEN NEGATIVE (NEGATIVE)
[2019-12-01 21:14] LABS: OPIATES URINE SCREEN PRESUMTIVE POSITIVE (NEGATIVE)
[2019-12-01 21:18] LABS: CANNABINOID URINE SCREEN NEGATIVE (NEGATIVE)
[2019-12-01] MEDS ORDERED: SODIUM CHLORIDE 0.9% 1,000 ML IV ONE (23:15)
[2019-12-01] MEDS ORDERED: CEFTRIAXONE 1 G PREMIX 50 ML IV SCH (23:15)
[2019-12-01] MEDS ORDERED: IOHEXOL-350 100 ML BOTTLE ONE (23:22)
[2019-12-02] MEDS ORDERED: ONDANSETRON HCL 4MG/2ML INJ IV ONE (00:45)
[2019-12-02 01:50] VITALS: BP 147/68
== END 2019-12-02 05:25 | disposition short-term general hospital (02) ==
LOC: ER 18:12
DX: R41.82 Altered mental status, unspecified (principal); E11.9 Type 2 diabetes mellitus without complications; I10 Essential (primary) hypertension; Z79.899 Other long term (current) drug therapy; Z98.890 Other specified postprocedural states
CPT/HCPCS: 36415; 70450; 70496; 71045; 80053; 80305; 80320; 81003; 82962; 83721; 84484; 85025; 85610; 93005; 96361; 96365; 96375; 99285; J0696; J2405; J7030; J7040; Q9967; G0480